=== PATIENT | female | born 1945 | race Two or more races ===

== ENCOUNTER 2023-09-16 07:23 | Emergency (ER) | payer OTHER ==
[~2023-09-16] VITALS: Ht 154.9 cm; Wt 54.4 kg
[2023-09-16] MEDS ORDERED: TRAMADOL HCL 50 MG TABLET PO ONE (09:30)
[2023-09-16 09:32] LABS: HEMATOCRIT 29.5 % (36.0-45.00); HEMOGLOBIN 10.1 g/dL (12.0-15.00); MEAN CELL VOLUME 75.9 fL (80.00-100.00); MEAN CORPUSCULAR HGB CONC 34.2 g/dl (32.0-36.0); PLATELET COUNT 449 K/uL (150-450); RED BLOOD COUNT 3.88 M/uL (4.00-6.00); RED CELL DISTRIBUTION WIDTH 15.3 % (11.5-14.5)
== END 2023-09-16 09:59 | disposition home or self-care (01) ==
LOC: ER 07:23
PROVIDERS: General Practice
DX: K51.90 Ulcerative colitis, unspecified, without complications (principal); M25.50 Pain in unspecified joint; I10 Essential (primary) hypertension; E11.9 Type 2 diabetes mellitus without complications